=== PATIENT | male | born 1950 | race Caucasian/White ===

== ENCOUNTER 2016-05-30 11:52 | Outpatient (CLI) | payer MEDICARE, OTHER | END 2016-05-30 11:53 | disposition home or self-care (01) | DX: M47.816 Spondylosis without myelopathy or radiculopathy, lumbar region (principal); M51.26 Other intervertebral disc displacement, lumbar region; M43.16 Spondylolisthesis, lumbar region; M51.36 Other intervertebral disc degeneration, lumbar region; M47.817 Spondylosis without myelopathy or radiculopathy, lumbosacral region ==

== ENCOUNTER 2016-06-07 10:46 | Outpatient (CLI) | payer MEDICARE, OTHER | END 2016-06-07 10:47 | disposition home or self-care (01) | DX: Z71.3 Dietary counseling and surveillance (principal); R94.5 Abnormal results of liver function studies; E11.9 Type 2 diabetes mellitus without complications; Z68.39 Body mass index [BMI] 39.0-39.9, adult ==

== ENCOUNTER 2016-07-19 09:45 | Outpatient (CLI) | payer MEDICARE, OTHER | END 2016-07-19 09:46 | disposition home or self-care (01) | DX: Z71.3 Dietary counseling and surveillance (principal); E11.9 Type 2 diabetes mellitus without complications; R94.5 Abnormal results of liver function studies; Z68.39 Body mass index [BMI] 39.0-39.9, adult ==

== ENCOUNTER 2016-10-21 09:09 | Emergency (ER) | payer MEDICARE, OTHER ==
--- NOTE | 2016-10-21 09:20 | ED Physician Documentation ---
PD HPI BACK PAIN - Stated complaint Stated Complaint: BACK PX - Chief complaint Chief Complaint: Back Pain - History obtained from History obtained from: Patient - History of Present Illness Timing - onset: How many days ago (has had pain for a few days. Has been doing some gardening, which is unusual for him. Had had prior back pain for months, found to be related to cyst on spine, which was aspirated in surgical center by spine surgeon and pain improved. This was 4-5 weeks ago. Had some pain again the past couple of weeks and has appt with spine surgeon mid November. Now with increased pain and spasms since gardening these past few days. No fevers, sores , redness, focal neuro symptoms.) Timing - duration: Days (3-4) Timing - details: Gradual onset, Waxing and waning Location: Lower (thoracolumbar area), Right Quality: Pain, Spasm, Aching Associated symptoms: No: Fever, Weakness, Numbness, Incontinent of urine Improves with: Rest Worsened by: Movement, Twisting Contributing factors: Twisting (pulling weeds and using hand garden tools.). No : Trauma Review of Systems Constitutional: denies: Fever, Chills GI: denies: Abdominal Pain, Nausea, Vomiting, Diarrhea : denies: Dysuria, Frequency, Incontinent Skin: denies: Rash, Lesions, Abrasion (s) Neurologic: denies: Focal weakness, Numbness PD PAST MEDICAL HISTORY - Past Medical History Cardiovascular: Hypertension, High cholesterol Respiratory: Sleep apnea, Other Endocrine/Autoimmune: Type 2 diabetes GI: None : Benign prostate hypertrophy HEENT: Chronic vision loss, Chronic hearing loss Psych: Depression, Anxiety Musculoskeletal: Osteoarthritis, Chronic back pain Derm: None - Past Surgical History Past Surgical History: Yes General: Colonoscopy, Other - Present Medications Home Medications: Ambulatory Orders Medication Instructions Recorded Confirmed Aripiprazole [Abilify] 10 mg PO DAILY 11/09/12 10/21/16 Aspirin Chewable [St Fab 81 mg PO DAILY 11/09/12 10/21/16 Aspirin] Celecoxib [Celebrex] 200 mg PO DAILY 11/09/12 10/21/16 Indapamide 2.5 mg PO DAILY 11/09/12 10/21/16 Insulin Glargine,Hum.rec.anlog 40 unit SQ BID 11/09/12 10/21/16 [Lantus] Metformin HCl 1,000 mg PO BID 11/09/12 10/21/16 Pravastatin Sodium [Pravachol] 40 mg PO QPM 11/09/12 10/21/16 Prazosin [Minipress] 5 mg PO BID 11/09/12 10/21/16 Tamsulosin [Flomax] 0.4 mg PO DAILY 11/09/12 10/21/16 Venlafaxine HCl [Effexor Xr] 300 mg PO HS 11/09/12 10/21/16 Insulin Aspart [NovoLOG] 24 unit SUBQ TIDWM 03/20/16 10/21/16 Metoprolol Tartrate 25 mg PO DAILY 03/20/16 10/21/16 Telmisartan [Micardis] 80 mg PO DAILY 03/20/16 10/21/16 Dextroamphetamine Sulfate 20 mg PO DAILY 08/23/16 10/21/16 [Dexedrine] Diazepam 5 mg PO TID PRN #20 tablet 10/21/16 Hydrocodone/Acetaminophen [[place] 1 each PO Q6H PRN #20 tablet 10/21/16 5-325 Tablet] Naproxen [Naprosyn] 500 mg PO BID PRN #20 tablet 10/21/16 - Allergies Allergies/Adverse Reactions: Allergies Allergy/AdvReac Type Severity Reaction Status Date / Time niacin Allergy Rash Verified 10/21/16 09:37 testosterone Allergy low RBC Verified 10/21/16 09:37 - Social History Does the pt smoke?: No Smoking Status: Never smoker Does the pt drink ETOH?: No Does the pt have substance abuse?: No PD ED PE NORMAL - Vitals Vital signs reviewed: Yes - General General: Alert and oriented X 3, Well developed/nourished, Other (appears uncomfortable due to back muscle spasms/stiffness. ) - Neck Neck: Supple, no meningeal sign, No adenopathy - Cardiac Cardiac: RRR, No murmur - Respiratory Respiratory: Clear bilaterally - Abdomen Abdomen: Soft, Non tender - Back Back: No CVA TTP, Other (tender in the right paraspinal muscles at thoracolumbar area. No vertebral tenderness directly to palpation nor percussion. ) - Derm Derm: Normal color, Warm and dry, No rash Results - Vitals Vitals: Vital Signs - 24 hr 10/21/16 10/21/16 09:13 10:33 Temperature 36.2 C L Heart Rate 78 70 Respiratory 16 20 Rate Blood Pressure 148/71 H 153/100 H O2 Saturation 98 Oxygen O2 Source Room air PD MEDICAL DECISION MAKING - ED course Complexity details: considered differential (seems musculoskeletal pain with spasms and no red flags per se. Given IM toradol and diazepam (for spasms) and is improved moderately for now. had similar pain with cyst on spine and has f/u with spine surgeon in a month but with PMD in a week. Dr. Troncoso could potentially order MRI to have results available for spine surgeon appt. Patient has also been doing gardening for the past 4 days, unusual activity for him, so may have just regular muscular pain as well. ), d/w patient Departure - Departure Disposition: 01 Home, Self Care Clinical Impression: Thoracolumbar back pain Condition: Stable Record reviewed to determine appropriate education?: Yes Instructions: ED Low Back Pain Injury Follow-Up: Parish Troncoso MD [Primary Care Provider] - Prescriptions: Diazepam 5 mg PO TID PRN #20 tablet PRN Reason: Spasms Naproxen [Naprosyn] 500 mg PO BID PRN #20 tablet PRN Reason: Pain Hydrocodone/Acetaminophen [[place] 5-325 Tablet] 1 each PO Q6H PRN #20 tablet PRN Reason: Pain Comments: Continue usual medications. Naproxen twice daily for 7-10 days. Add Diazepam for spasms and hydrocodone for pain as needed. Try heat or ice to area to see if it helps. Follow up PMD in about a week if not better. Discharge Date/Time: 10/21/16 10:33
[2016-10-21] MEDS ORDERED: KETOROLAC 60 MG/2 ML VIAL IM STA (09:42)
[2016-10-21] MEDS ORDERED: diazePAM INJ 5 MG/ML SYRINGE IM STA (09:43)
[2016-10-21] MEDS ORDERED: diazePAM INJ 5 MG/ML SYRINGE ONE (09:50)
[2016-10-21] MEDS ORDERED: KETOROLAC 60 MG/2 ML VIAL ONE (09:50)
[2016-10-21 10:34] VITALS: BP 153/100
== END 2016-10-21 10:33 | disposition home or self-care (01) ==
LOC: ED 09:09
DX: M54.5 Low back pain (principal); M54.6 Pain in thoracic spine; M62.830 Muscle spasm of back; M19.90 Unspecified osteoarthritis, unspecified site; I10 Essential (primary) hypertension; E11.9 Type 2 diabetes mellitus without complications; Z79.4 Long term (current) use of insulin; Z79.82 Long term (current) use of aspirin
CPT/HCPCS: 96372; 99283; 99284

== ENCOUNTER 2016-10-23 07:50 | Outpatient (CLI) | payer MEDICARE, OTHER ==
[2016-10-23 13:07] LABS: HEMOGLOBIN A1C 0.73 g/dL
[2016-10-23 13:17] LABS: ALBUMIN/GLOBULIN RATIO 1.8 (1.0-2.2); BILIRUBIN,TOTAL 0.6 mg/dL (0.2-1.0); CALCIUM 9.2 mg/dL (8.5-10.3); CREATININE 1.1 mg/dL (0.6-1.2); POTASSIUM 4.1 mmol/L (3.5-5.0); TOTAL PROTEIN 7.2 g/dL (6.7-8.2)
== END 2016-10-23 07:51 | disposition home or self-care (01) ==
LOC: LAB.WCP 07:50
PROVIDERS: ATTEND Family Medicine
DX: E11.9 Type 2 diabetes mellitus without complications (principal); R94.5 Abnormal results of liver function studies
CPT/HCPCS: 36415; 80053; 83036

== ENCOUNTER 2017-04-22 07:52 | Outpatient (CLI) | payer MEDICARE, OTHER ==
[2017-04-22 14:01] LABS: BASOPHILS % (AUTO) 1.1 %; EOSINOPHILS % (AUTO) 3.1 %; HCT - HEMATOCRIT 45.9 % (42.0-52.0); HGB - HEMOGLOBIN 15.6 g/dL (14.0-18.0); LYMPHOCYTES % (AUTO) 26.8 %; MEAN CORPUSCULAR HEMOGLOBIN 29.1 pg (27.0-31.0); MEAN CORPUSCULAR VOLUME 85.5 fL (80.0-94.0); MEAN PLATELET VOLUME 8.5 fL (7.4-11.4); MONOCYTES % (AUTO) 5.6 %; NEUTROPHILS % (AUTO) 63.4 %; RED BLOOD COUNT 5.37 10^6/uL (4.70-6.10); RED CELL DISTRIBUTION WIDTH 14.4 % (12.0-15.0); UNCORRECTED WHITE BLOOD COUNT 8.6 x10^3/uL; WHITE BLOOD COUNT 8.6 x10^3/uL (4.8-10.8)
[2017-04-22 14:52] LABS: TRIGLYCERIDES 216 mg/dL; VLDL CHOLESTEROL 43 mg/dL
[2017-04-22 14:53] LABS: ALBUMIN/GLOBULIN RATIO 1.6 (1.0-2.2); BILIRUBIN,TOTAL 0.7 mg/dL (0.2-1.0); BUN - BLOOD UREA NITROGEN 16 mg/dL (6-20); CALCIUM 9.1 mg/dL (8.5-10.3); CARBON DIOXIDE - CO2 22 mmol/L (21-32); CHLORIDE 104 mmol/L (101-111); CHOL/HDL RATIO 4.3 (<5.0); CHOLESTEROL 171 mg/dL; CREATININE 1.1 mg/dL (0.6-1.2); GFR - MDRD 67 (>89); GLUCOSE 184 mg/dL (70-100); HDL CHOLESTEROL 40 mg/dL; LDL/HDL RATIO 2.2 (<3.6); SODIUM 136 mmol/L (135-145); TOTAL PROTEIN 7.5 g/dL (6.7-8.2)
[2017-04-22 16:17] LABS: BAND NEUTROPHILS % (MANUAL) 6 %; EOSINOPHILS % (MANUAL) 6 %; LYMPHOCYTES % (MANUAL) 20 %; NEUTROPHILS % (MANUAL) 54 %; TOTAL CELLS COUNTED 100
[2017-04-22 16:44] LABS: NP AUTO DIFFERENTIAL? YES; NP MAN DIFFERENTIAL? NO; PLATELET ESTIMATE, MANUAL NORMAL (130-450,000) (NORMAL); PLATELET MORPHOLOGY NORMAL APP (NORMAL); WBC MORPHOLOGY (MULTIPLE) 1+ REACTIVE LYMPHS (NORMAL)
== END 2017-04-22 07:53 | disposition home or self-care (01) ==
LOC: LAB.WCP 07:52
PROVIDERS: ATTEND Family Medicine
DX: I49.8 Other specified cardiac arrhythmias (principal); E78.5 Hyperlipidemia, unspecified; Z12.5 Encounter for screening for malignant neoplasm of prostate; R06.00 Dyspnea, unspecified
CPT/HCPCS: 36415; 80053; 80061; 83880; 84443; 85025; G0103; 84153

== ENCOUNTER 2017-06-18 15:15 | Emergency (ER) | payer MEDICARE, OTHER ==
--- NOTE | 2017-06-18 15:52 | ED Physician Documentation ---
History of Present Illness - Stated complaint Stated Complaint: SYNCOPE - Chief complaint Chief Complaint: General - History obtained from History obtained from: Patient, Family () - History of Present Illness Timing: Other (66-year-old gentleman with history of obstructive sleep apnea on BiPAP at night, type 1 diabetes, obesity and hypertension but no known history of heart disease presents with exertional dyspnea that has been going on for about a month and a half. He noticed it around [place] time when golfing and he has had exertional dyspnea with walking a moderate distance ever since. He does not have dyspnea at rest nor does he have orthopnea. There has been no pedal edema or chest pain with this. He had a presyncopal episode with dyspnea today. He has seen a network systems engineer, Dr. Mcmahon who stopped his metoprolol based on the fact that in the office he had a EKG showing "missing P-wave." And is scheduled for workup including medical stress test, echo, and chest x-ray on the of this month.) Review of Systems Ten Systems: 10 systems reviewed and negative Constitutional: denies: Fever, Chills, Fatigue, Weight Loss Nose: denies: Rhinorrhea / runny nose, Congestion Cardiac: denies: Chest pain / pressure, Palpitations, Pedal edema, Calf pain Respiratory: reports: Dyspnea. denies: Cough GI: denies: Abdominal Pain, Bloody / black stool PD PAST MEDICAL HISTORY - Past Medical History Past Medical History: Yes Cardiovascular: Hypertension, High cholesterol Respiratory: Sleep apnea, Other Endocrine/Autoimmune: Type 2 diabetes GI: None : Benign prostate hypertrophy HEENT: Chronic vision loss, Chronic hearing loss Psych: Depression, Anxiety Musculoskeletal: Osteoarthritis, Chronic back pain Derm: None - Past Surgical History Past Surgical History: Yes General: Colonoscopy, Other - Present Medications Home Medications: Ambulatory Orders Medication Instructions Recorded Confirmed Aripiprazole [Abilify] 10 mg PO DAILY 11/09/12 10/21/16 Aspirin Chewable [St Fab 81 mg PO DAILY 11/09/12 10/21/16 Aspirin] Celecoxib [Celebrex] 200 mg PO DAILY 11/09/12 10/21/16 Indapamide 2.5 mg PO DAILY 11/09/12 10/21/16 Insulin Glargine,Hum.rec.anlog 80 unit SQ BID 11/09/12 10/21/16 [Lantus] Metformin HCl 1,000 mg PO BID 11/09/12 10/21/16 Pravastatin Sodium [Pravachol] 40 mg PO QPM 11/09/12 10/21/16 Prazosin [Minipress] mg PO BID 11/09/12 10/21/16 Tamsulosin [Flomax] 0.4 mg PO DAILY 11/09/12 10/21/16 Venlafaxine HCl [Effexor Xr] 300 mg PO HS 11/09/12 10/21/16 Insulin Aspart [NovoLOG] 120 unit SUBQ TIDWM 03/20/16 10/21/16 Telmisartan [Micardis] 80 mg PO DAILY 03/20/16 10/21/16 Dextroamphetamine Sulfate 20 mg PO DAILY 08/23/16 10/21/16 [Dexedrine] diazePAM [Diazepam] 5 mg PO TID PRN #20 tablet 10/21/16 - Allergies Allergies/Adverse Reactions: Allergies Allergy/AdvReac Type Severity Reaction Status Date / Time niacin Allergy Rash Verified 10/21/16 09:37 testosterone Allergy low RBC Verified 10/21/16 09:37 - Social History Does the pt smoke?: No Smoking Status: Never smoker Does the pt drink ETOH?: No Does the pt have substance abuse?: No PD ED PE NORMAL - Vitals Vital signs reviewed: Yes - General General: Alert and oriented X 3, No acute distress - HEENT HEENT: PERRL, EOMI - Neck Neck: Supple, no meningeal sign, No bony TTP - Cardiac Cardiac: RRR, No murmur - Respiratory Respiratory: No respiratory distress, Clear bilaterally - Abdomen Abdomen: Normal bowel sounds, Soft, Non tender - Back Back: No CVA TTP, No spinal TTP - Derm Derm: Normal color, Warm and dry, No rash - Extremities Extremities: No edema, No calf tenderness / cord - Neuro Neuro: Alert and oriented X 3, Normal speech - Psych Psych: Normal mood, Normal affect Results - Vitals Vitals: Vital Signs - 24 hr 06/18/17 06/18/17 06/18/17 15:24 15:30 16:20 Temperature 36.2 C L Heart Rate 99 102 H 92 Respiratory 22 20 20 Rate Blood Pressure 145/67 H 135/76 H 145/65 H O2 Saturation 95 94 Oxygen O2 Source Room air - EKG (time done) 1523 Rate: Rate (enter#) (99) Rhythm: NSR [place]: Normal Intervals: Prolonged ND QRS: Normal Ischemia: Normal ST segments Computer interpretation: Agree with computer - Labs Labs: Laboratory Tests 06/18/17 06/18/17 06/18/17 16:03 16:03 16:03 WBC 9.2 RBC 5.11 Hgb 14.8 Hct 43.0 MCV 84.2 MCH 29.0 MCHC 34.4 RDW 14.0 Plt Count 177 MPV 7.8 Neut # 6.2 Lymph # 2.1 [place] # 0.6 Eos # 0.2 Baso # 0.1 Absolute Nucleated RBC 0.00 Nucleated RBC % 0.0 Sodium 134 L Potassium 4.2 Chloride 96 L Carbon Dioxide 22 Anion Gap 16.0 H BUN 27 H Creatinine 1.8 H Estimated GFR (MDRD) 38 L Glucose 71 Calcium 9.8 Total Bilirubin 0.5 AST 43 H ALT 49 Alkaline Phosphatase 47 Troponin I < 0.04 B-Natriuretic Peptide Total Protein 7.6 Albumin 4.7 Globulin 2.9 Albumin/Globulin Ratio 1.6 Lipase 18 L 06/18/17 16:03 WBC RBC Hgb Hct MCV MCH MCHC RDW Plt Count MPV Neut # Lymph # [place] # Eos # Baso # Absolute Nucleated RBC Nucleated RBC % Sodium Potassium Chloride Carbon Dioxide Anion Gap BUN Creatinine Estimated GFR (MDRD) Glucose Calcium Total Bilirubin AST ALT Alkaline Phosphatase Troponin I B-Natriuretic Peptide 5 Total Protein Albumin Globulin Albumin/Globulin Ratio Lipase PD MEDICAL DECISION MAKING - ED course ED course: 66-year-old gentleman with now pretty subacute dyspnea on exertion, but no evidence of fluid overload. His EKG is nonischemic and his x-ray and BNP are without evidence of heart failure. I was unable to get an echocardiogram today but he has outpatient follow-up scheduled. His lab work was otherwise notable for prerenal azotemia which is new, he is not on a diuretic he was administered a liter of IV fluid for this. He was ambulated in the hallway with pulse oximetry showing no significant hypoxemia. Departure - Departure Disposition: 01 Home, Self Care Clinical Impression: DE ANDA (dyspnea on exertion) Condition: Good Record reviewed to determine appropriate education?: Yes Instructions: ED Dyspnea Shortness of Breath Comments: Keep the appointment for further workup including echocardiogram and stress test as scheduled. Your chest x-ray, 2 views here was normal today so that probably does not need to be repeated. Let your network systems engineer know that your BNP was only 5 and her troponin was undetectable. These are cardiac markers that are reassuring. Your BUN was elevated and your creatinine was as well, 1.8 today. This needs follow-up as well. Return if symptoms worsen or change.
[2017-06-18 16:09] LABS: BASOPHILS # (AUTO) 0.1 10^3/uL (0.0-0.1); BASOPHILS % (AUTO) 1.1 %; EOSINOPHILS # (AUTO) 0.2 10^3/uL (0.0-0.7); EOSINOPHILS % (AUTO) 1.8 %; HGB - HEMOGLOBIN 14.8 g/dL (14.0-18.0); LYMPHOCYTES # (AUTO) 2.1 10^3/uL (1.5-3.5); LYMPHOCYTES % (AUTO) 23.2 %; MEAN CORPUSCULAR HGB CONC 34.4 g/dL (32.0-36.0); MEAN CORPUSCULAR VOLUME 84.2 fL (80.0-94.0); MEAN PLATELET VOLUME 7.8 fL (7.4-11.4); MONOCYTES # (AUTO) 0.6 10^3/uL (0.0-1.0); MONOCYTES % (AUTO) 6.7 %; NEUTROPHILS # (AUTO) 6.2 10^3/uL (1.5-6.6); NEUTROPHILS % (AUTO) 67.2 %; PLT - PLATELET COUNT 177 10^3/uL (130-450); RED BLOOD COUNT 5.11 10^6/uL (4.70-6.10); WHITE BLOOD COUNT 9.2 x10^3/uL (4.8-10.8)
[2017-06-18 16:22] LABS: ALBUMIN 4.7 g/dL (3.2-5.5); ALBUMIN/GLOBULIN RATIO 1.6 (1.0-2.2); BILIRUBIN,TOTAL 0.5 mg/dL (0.2-1.0); CALCIUM 9.8 mg/dL (8.5-10.3); CREATININE 1.8 mg/dL (0.6-1.2); TOTAL PROTEIN 7.6 g/dL (6.7-8.2)
--- NOTE | 2017-06-18 16:36 | XRAY Preliminary Report ---
Exam: XR CHEST 2 VIEW X-RAY IMPRESSION: Normal 2-view chest radiography. [facility] SITE ID: [id number]
[2017-06-18] MEDS ORDERED: SODIUM CHLORIDE 0.9% 1,000 ML IV ONE (16:43)
--- NOTE | 2017-06-18 16:43 | XRAY Report ---
EXAM: CHEST RADIOGRAPHY EXAM DATE: 06/18/2017 04:17 PM. CLINICAL HISTORY: Dyspnea on exertion. COMPARISON: None. TECHNIQUE: 2 views. FINDINGS: Lungs/Pleura: No focal opacities evident. No pleural effusion. No pneumothorax. Normal volumes. Mediastinum: Heart and mediastinal contours are unremarkable. Other: None. IMPRESSION: Normal 2-view chest radiography. [facility] Referring Provider Line: [phone] SITE ID: [id number]
[2017-06-18 18:56] VITALS: BP 170/78
== END 2017-06-18 18:55 | disposition home or self-care (01) ==
LOC: ED 15:15
DX: R06.00 Dyspnea, unspecified (principal); I45.81 Long QT syndrome; E11.9 Type 2 diabetes mellitus without complications; I10 Essential (primary) hypertension; E66.9 Obesity, unspecified; Z79.4 Long term (current) use of insulin; Z79.82 Long term (current) use of aspirin
CPT/HCPCS: 36415; 71046; 80053; 83690; 83880; 84484; 85025; 93005; 99283; 99285

== ENCOUNTER 2017-06-24 07:30 | Outpatient (CLI) | payer MEDICARE, OTHER ==
[2017-06-24 12:47] LABS: HB2 TOTAL 16.3 g/dL; HEMOGLOBIN A1C 0.88 g/dL; HEMOGLOBIN A1C % 7.1 % (4.6-6.2)
[2017-06-24 14:08] LABS: ALBUMIN 4.5 g/dL (3.2-5.5); ALBUMIN/GLOBULIN RATIO 1.7 (1.0-2.2); BILIRUBIN,TOTAL 0.7 mg/dL (0.2-1.0); CALCIUM 9.1 mg/dL (8.5-10.3); CREATININE 1.2 mg/dL (0.6-1.2); TOTAL PROTEIN 7.2 g/dL (6.7-8.2)
== END 2017-06-24 07:31 | disposition home or self-care (01) ==
LOC: LAB.WCP 07:30
PROVIDERS: ATTEND Family Medicine
DX: E11.9 Type 2 diabetes mellitus without complications (principal); I10 Essential (primary) hypertension
CPT/HCPCS: 36415; 80053; 83036

== ENCOUNTER 2017-08-08 12:59 | Outpatient (CLI) | payer MEDICARE, OTHER ==
[~2017-08-08 12:59] MED LIST: ALBUTEROL NEB 2.5 MG/3 ML INH ONE
== END 2017-08-08 13:00 | disposition home or self-care (01) ==
LOC: RT 12:59
PROVIDERS: ATTEND Family Medicine
DX: R06.00 Dyspnea, unspecified (principal)
CPT/HCPCS: 94010; 94729

== ENCOUNTER 2017-10-10 08:00 | Outpatient (CLI) | payer MEDICARE, OTHER ==
[2017-10-10 12:15] LABS: BASOPHILS # (AUTO) 0.1 10^3/uL (0.0-0.1); BASOPHILS % (AUTO) 1.2 %; EOSINOPHILS # (AUTO) 0.3 10^3/uL (0.0-0.7); EOSINOPHILS % (AUTO) 3.3 %; HGB - HEMOGLOBIN 15.5 g/dL (14.0-18.0); LYMPHOCYTES # (AUTO) 2.4 10^3/uL (1.5-3.5); LYMPHOCYTES % (AUTO) 29.4 %; MEAN CORPUSCULAR HEMOGLOBIN 28.5 pg (27.0-31.0); MEAN CORPUSCULAR HGB CONC 33.6 g/dL (32.0-36.0); MEAN CORPUSCULAR VOLUME 84.7 fL (80.0-94.0); MEAN PLATELET VOLUME 8.5 fL (7.4-11.4); MONOCYTES # (AUTO) 0.5 10^3/uL (0.0-1.0); MONOCYTES % (AUTO) 6.8 %; NEUTROPHILS # (AUTO) 4.8 10^3/uL (1.5-6.6); NEUTROPHILS % (AUTO) 59.3 %; PLT - PLATELET COUNT 189 10^3/uL (130-450); RED BLOOD COUNT 5.44 10^6/uL (4.70-6.10); RED CELL DISTRIBUTION WIDTH 14.5 % (12.0-15.0)
[2017-10-10 12:28] LABS: ALBUMIN 4.5 g/dL (3.2-5.5); ALBUMIN/GLOBULIN RATIO 1.5 (1.0-2.2); BILIRUBIN,TOTAL 0.8 mg/dL (0.2-1.0); CALCIUM 9.2 mg/dL (8.5-10.3); CREATININE 1.2 mg/dL (0.6-1.2); TOTAL PROTEIN 7.6 g/dL (6.7-8.2)
[2017-10-10 12:51] LABS: HB2 TOTAL 17.7 g/dL; HEMOGLOBIN A1C 0.85 g/dL; HEMOGLOBIN A1C % 6.5 % (4.6-6.2)
== END 2017-10-10 08:01 | disposition home or self-care (01) ==
LOC: LAB.WCP 08:00
PROVIDERS: ATTEND Family Medicine
DX: E78.5 Hyperlipidemia, unspecified (principal); E11.9 Type 2 diabetes mellitus without complications; G47.33 Obstructive sleep apnea (adult) (pediatric); I10 Essential (primary) hypertension; R06.09 Other forms of dyspnea
CPT/HCPCS: 36415; 80053; 83036; 85025

== ENCOUNTER 2018-08-05 08:00 | Outpatient (CLI) | payer MEDICARE, OTHER ==
[2018-08-05 19:50] LABS: ALBUMIN/GLOBULIN RATIO 1.4 (1.0-2.2); BILIRUBIN,TOTAL 0.7 mg/dL (0.2-1.0); CALCIUM 8.8 mg/dL (8.5-10.3); CREATININE 0.9 mg/dL (0.6-1.2); TOTAL PROTEIN 6.8 g/dL (6.7-8.2)
[2018-08-05 19:53] LABS: HEMOGLOBIN A1C 0.64 g/dL; HEMOGLOBIN A1C % 6.1 % (4.6-6.2)
== END 2018-08-05 23:59 | disposition home or self-care (01) ==
LOC: LAB.WCP 08:00
PROVIDERS: ATTEND Family Medicine
DX: G47.419 Narcolepsy without cataplexy (principal); E11.9 Type 2 diabetes mellitus without complications; I10 Essential (primary) hypertension; G47.30 Sleep apnea, unspecified
CPT/HCPCS: 36415; 80053; 83036

== ENCOUNTER 2018-09-17 14:02 | Outpatient (CLI) | payer MEDICARE, OTHER ==
[2018-09-17 14:20] LABS: CALCIUM 9.2 mg/dL (8.5-10.3); CREATININE 1.1 mg/dL (0.6-1.2)
[2018-09-17] MEDS ORDERED: GADOBUTROL 10 MMOL/10 ML VIAL ONE (15:29)
[2018-09-17] MEDS ORDERED: GADOBUTROL 10 MMOL/10 ML VIAL IVP ONE (16:24)
--- NOTE | 2018-09-17 17:48 | MRI Report ---
Reason: MOVEMENT DISORDER,MEMORY IMPAIRMENT Procedure Date: 09/17/2018 Accession Number: [id number] / [id number] Procedure: MRI - Brain W/WO CPT Code: FULL RESULT: EXAM: MRI BRAIN WITHOUT AND WITH CONTRAST EXAM DATE: 09/17/2018 04:57 PM. CLINICAL HISTORY: MOVEMENT DISORDER,MEMORY IMPAIRMENT. COMPARISON: MRI brain 12/18/2005. TECHNIQUE: Multiplanar, multisequence T1-weighted and fluid-sensitive MR sequences of the brain were performed. Sequences optimized for routine evaluation. Other: None. IV Contrast: 10 cc Gadavist. FINDINGS: No cerebellar tonsillar ectopia is present. No significant volume loss is seen involving the upper mid brain on the sagittal images. No abnormal restricted diffusion signal is seen. No abnormal magnetic susceptibility is identified in the brain parenchyma. There is mild cerebellar atrophy bilaterally which is new. There has been an increase in the degree of prominence of the ventricles and sulci in the supratentorial compartment which is slightly greater than expected for the patient's age. This is new There is no extra-axial fluid collection present. Punctate FLAIR hyperintensities are seen in the cerebral hemisphere white matter bilaterally. These are mild in number. They have increased in number since the comparison study. No abnormal signal is seen in either basal ganglia. There is an expected flow void in the major intracranial vessels at the skull base. No mass is present in either orbit There is a 14 mm focus of T2 hyperintense signal involving mastoid air cells on the left. Extension into the middle ear cavity is suspected. This does not demonstrate restricted diffusion signal. On the more delayed images there might be some degree of contrast enhancement. T2 hyperintense signal extends near the eustachian tube on the left. This is new. No enhancing mass is identified in the brain parenchyma.Expected enhancement is present in the major dural venous sinuses. No enhancing mass is identified in either Meckel's cave. The cavernous sinuses enhance in symmetric fashion. No mass is present in either orbit. IMPRESSION: 1. Interval development of mild cerebral and cerebellar atrophy. 2. No enhancing mass is present in the brain parenchyma. 3. No abnormal signal is seen in either basal ganglia. 4. Slight progression of mild small vessel ischemic change in the cerebral hemisphere white matter bilaterally. 5. T2 hyperintense signal is seen involving mastoid air cells and middle ear cavity on the left with possible extension into the eustachian tube region. This could reflect otomastoiditis. An element of cholesteatoma is in the differential given possible enhancement on the more delayed postcontrast images. Dedicated temporal bone CT could better assess this finding. [facility]
== END 2018-09-17 14:03 | disposition home or self-care (01) ==
LOC: LAB 14:02 → DI 14:03
PROVIDERS: ATTEND Family Medicine
DX: G31.9 Degenerative disease of nervous system, unspecified (principal); I67.82 Cerebral ischemia; R41.3 Other amnesia; G25.9 Extrapyramidal and movement disorder, unspecified
CPT/HCPCS: 36415; 70553; 80048; A9585

== ENCOUNTER 2018-09-25 11:49 | Outpatient (CLI) | payer MEDICARE, OTHER | END 2018-09-25 11:50 | disposition home or self-care (01) | LOC: LAB.WCP 11:49 | PROVIDERS: ATTEND Family Medicine | DX: Z12.5 Encounter for screening for malignant neoplasm of prostate (principal) | CPT/HCPCS: 36415; G0103; 84153 ==

== ENCOUNTER 2018-11-13 10:43 | Outpatient (CLI) | payer MEDICARE, OTHER ==
[2018-11-13 12:33] LABS: BASOPHILS # (AUTO) 0.1 10^3/uL (0.0-0.1); BASOPHILS % (AUTO) 1.2 %; EOSINOPHILS # (AUTO) 0.2 10^3/uL (0.0-0.7); EOSINOPHILS % (AUTO) 2.8 %; HGB - HEMOGLOBIN 14.7 g/dL (14.0-18.0); LYMPHOCYTES # (AUTO) 2.2 10^3/uL (1.5-3.5); MEAN CORPUSCULAR HEMOGLOBIN 28.6 pg (27.0-31.0); MEAN CORPUSCULAR HGB CONC 32.5 g/dL (32.0-36.0); MEAN CORPUSCULAR VOLUME 87.9 fL (80.0-94.0); MEAN PLATELET VOLUME 10.3 fL (7.4-11.4); MONOCYTES # (AUTO) 0.6 10^3/uL (0.0-1.0); MONOCYTES % (AUTO) 7.4 %; NEUTROPHILS # (AUTO) 4.4 10^3/uL (1.5-6.6); NEUTROPHILS % (AUTO) 58.7 %; PLT - PLATELET COUNT 214 10^3/uL (130-450); RED BLOOD COUNT 5.14 10^6/uL (4.70-6.10); RED CELL DISTRIBUTION WIDTH 13.7 % (12.0-15.0); WHITE BLOOD COUNT 7.5 x10^3/uL (4.8-10.8)
[2018-11-13 13:08] LABS: CALCIUM 9.8 mg/dL (8.5-10.3)
== END 2018-11-13 23:59 | disposition home or self-care (01) ==
LOC: LAB.WCP 10:43
PROVIDERS: ATTEND Physician Assistant Medical
DX: I10 Essential (primary) hypertension (principal)
CPT/HCPCS: 36415; 80048; 84443; 85025

== ENCOUNTER 2019-01-20 06:58 | Outpatient (CLI) | payer MEDICARE, OTHER ==
--- NOTE | 2019-01-20 12:28 | Ultrasound Report ---
Reason: ABNORMAL FINDINGS ON DX IMAGING OF LIVER AND BILIA Procedure Date: 01/20/2019 Accession Number: [id number] / [id number] Procedure: US - Abdomen Limited CPT Code: FULL RESULT: EXAM: ABDOMEN ULTRASOUND LIMITED, RUQ EXAM DATE: 01/20/2019 07:31 AM. CLINICAL HISTORY: 01/05/2019 CT IVP at [facility] showed left hepatic lobe abnormality, possible hemangioma or cyst. COMPARISON: Outside images of 01/05/2019 are unavailable for comparison.. TECHNIQUE: Real-time scanning was performed with static images obtained. FINDINGS: Liver: Increased both in size and echotexture. 21.2 cm. Main portal vein flow: Hepatopetal. Small cluster of simple cysts in the left lobe of the liver 1.4 x 0.9 x 1.6 cm. Gallbladder: Not evaluated Biliary System: CBD measures 3.5 mm. No intrahepatic or extrahepatic ductal dilatation. Free fluid: None. IMPRESSION: Hepatomegaly with fatty infiltration of the liver. Cluster of simple cysts anterior medial left lobe of the liver 1.4 x 0.9 x 1.6 cm. [facility]
== END 2019-01-20 06:59 | disposition home or self-care (01) ==
LOC: DI 06:58
PROVIDERS: ATTEND Family Medicine
DX: K76.0 Fatty (change of) liver, not elsewhere classified (principal); K76.89 Other specified diseases of liver
CPT/HCPCS: 76705

== ENCOUNTER 2019-09-23 07:58 | Outpatient (CLI) | payer MEDICARE, OTHER ==
[2019-09-23 13:24] LABS: BASOPHILS # (AUTO) 0.1 10^3/uL (0.0-0.1); EOSINOPHILS # (AUTO) 0.4 10^3/uL (0.0-0.7); EOSINOPHILS % (AUTO) 5.1 %; HGB - HEMOGLOBIN 13.7 g/dL (14.0-18.0); LYMPHOCYTES # (AUTO) 2.4 10^3/uL (1.5-3.5); LYMPHOCYTES % (AUTO) 33.6 %; MEAN CORPUSCULAR HEMOGLOBIN 26.6 pg (27.0-31.0); MEAN CORPUSCULAR HGB CONC 30.4 g/dL (32.0-36.0); MEAN CORPUSCULAR VOLUME 87.6 fL (80.0-94.0); MEAN PLATELET VOLUME 9.9 fL (7.4-11.4); MONOCYTES # (AUTO) 0.5 10^3/uL (0.0-1.0); MONOCYTES % (AUTO) 6.8 %; NEUTROPHILS # (AUTO) 3.8 10^3/uL (1.5-6.6); NEUTROPHILS % (AUTO) 52.8 %; PLT - PLATELET COUNT 196 10^3/uL (130-450); RED BLOOD COUNT 5.15 10^6/uL (4.70-6.10); WHITE BLOOD COUNT 7.2 x10^3/uL (4.8-10.8)
[2019-09-23 13:26] LABS: HB2 TOTAL 14.4 g/dL; HEMOGLOBIN A1C 0.76 g/dL
[2019-09-23 13:30] LABS: ALBUMIN/GLOBULIN RATIO 1.3 (1.0-2.2); ALKALINE PHOSPHATASE 59 IU/L (42-121); ALT ALANINE AMINOTRANSFERASE 37 IU/L (10-60); AST ASPARTATE AMINOTRANSFERASE 23 IU/L (10-42); BILIRUBIN,TOTAL 0.4 mg/dL (0.2-1.0); BUN - BLOOD UREA NITROGEN 18 mg/dL (6-20); CALCIUM 9.1 mg/dL (8.5-10.3); CARBON DIOXIDE - CO2 25 mmol/L (21-32); CHLORIDE 104 mmol/L (101-111); CHOL/HDL RATIO 4.1 (<5.0); CHOLESTEROL 153 mg/dL; CREATININE 1.1 mg/dL (0.6-1.2); GLUCOSE 93 mg/dL (70-100); HDL CHOLESTEROL 37 mg/dL; LDL CHOLESTEROL,CALCULATED 75 mg/dL; SODIUM 137 mmol/L (135-145); TOTAL PROTEIN 7.1 g/dL (6.7-8.2); VLDL CHOLESTEROL 41 mg/dL
[2019-09-23 18:53] LABS: CREATININE,URINE 241.9 mg/dL; MICROALBUM/CREATININE RATIO,UR 7.4 ug/mg (<30.0); MICROALBUMIN,URINE 1.8 mg/dL (0-300.0)
== END 2019-09-23 23:59 | disposition home or self-care (01) ==
LOC: LAB.WCP 07:58
PROVIDERS: ATTEND Family Medicine
DX: E78.5 Hyperlipidemia, unspecified (principal); E11.9 Type 2 diabetes mellitus without complications; I10 Essential (primary) hypertension
CPT/HCPCS: 36415; 80053; 80061; 82043; 82570; 83036; 83721; 84443; 85025

== ENCOUNTER 2019-10-05 11:44 | Emergency (ER) | payer MEDICARE, OTHER ==
[2019-10-05 11:51] VITALS: BP 156/76
--- NOTE | 2019-10-05 12:32 | ED Physician Documentation ---
PD HPI SKIN - Stated complaint Stated Complaint: RASH/SHINGLES - Chief complaint Chief Complaint: Wound - History obtained from History obtained from: Patient - History of Present Illness Timing - onset: How many days ago (5) Timing - duration: Days (5) Timing - details: Gradual onset, Still present Location: Abdomen, Back Quality / character: Itchy, Painful, Burning Associated symptoms: Abd pain. No: Fever, Myalgias, Joint pain, Headache, Facial swelling, Dyspnea, N/V/D Similar symptoms before: Has not had sx before Recently seen: Not recently seen - Additional information Additional information: 69-year-old male with a history of hypertension diabetes and obstructive sleep apnea has developed a rash on the side of his abdomen and on his back that is extremely painful and comes and shocks. He has had the chickenpox as a child and he has had the shingles vaccine. He sent to the emergency department by his doctor for evaluation of shingles. Review of Systems Constitutional: denies: Fever, Chills Eyes: denies: Decreased vision Ears: denies: Ear pain Nose: denies: Congestion Throat: denies: Sore throat Respiratory: denies: Cough GI: reports: Abdominal Pain, Constipation. denies: Vomiting Skin: reports: Rash Musculoskeletal: reports: Back pain. denies: Neck pain, Extremity pain Neurologic: denies: Generalized weakness, Focal weakness, Numbness PD PAST MEDICAL HISTORY - Past Medical History Past Medical History: Yes Cardiovascular: Hypertension, High cholesterol Respiratory: Sleep apnea, Other Endocrine/Autoimmune: Type 2 diabetes GI: None : Benign prostate hypertrophy HEENT: Chronic vision loss, Chronic hearing loss Psych: Depression, Anxiety Musculoskeletal: Osteoarthritis, Chronic back pain Derm: None - Past Surgical History Past Surgical History: Yes General: Colonoscopy, Other - Present Medications Home Medications: Ambulatory Orders Medication Instructions Recorded Confirmed Aripiprazole [Abilify] 10 mg PO DAILY 11/09/12 10/21/16 Aspirin Chewable [St Fab 81 mg PO DAILY 11/09/12 10/21/16 Aspirin] Celecoxib [Celebrex] 200 mg PO DAILY 11/09/12 10/21/16 Indapamide 2.5 mg PO DAILY 11/09/12 10/21/16 Insulin Glargine,Hum.rec.anlog 80 unit SQ BID 11/09/12 10/21/16 [Lantus] Metformin HCl 1,000 mg PO BID 11/09/12 10/21/16 Pravastatin Sodium [Pravachol] 40 mg PO QPM 11/09/12 10/21/16 Prazosin [Minipress] mg PO BID 11/09/12 10/21/16 Tamsulosin [Flomax] 0.4 mg PO DAILY 11/09/12 10/21/16 Venlafaxine HCl [Effexor Xr] 300 mg PO HS 11/09/12 10/21/16 Insulin Aspart [NovoLOG] 120 unit SUBQ TIDWM 03/20/16 10/21/16 Telmisartan [Micardis] 80 mg PO DAILY 03/20/16 10/21/16 Dextroamphetamine Sulfate 20 mg PO DAILY 08/23/16 10/21/16 [Dexedrine] diazePAM [Diazepam] 5 mg PO TID PRN #20 tablet 10/21/16 Hydrocodone/Acetaminophen 1 - 2 each PO Q6H PRN #14 tablet 10/05/19 [Hydrocodon-Acetaminophen 5-325] Valacyclovir HCl [Valacyclovir] 1,000 mg PO TID #21 tablet 10/05/19 - Allergies Allergies/Adverse Reactions: Allergies Allergy/AdvReac Type Severity Reaction Status Date / Time niacin Allergy Rash Verified 10/21/16 09:37 testosterone Allergy low RBC Verified 10/21/16 09:37 - Social History Does the pt smoke?: No Smoking Status: Never smoker Does the pt drink ETOH?: No Does the pt have substance abuse?: No - Immunizations Immunizations are current?: Yes - POLST Patient has POLST: No PD ED PE NORMAL - Vitals Vital signs reviewed: Yes (Hypertensive) - General General: Alert and oriented X 3, No acute distress, Well developed/nourished - HEENT HEENT: Atraumatic, PERRL, EOMI - Respiratory Respiratory: No respiratory distress - Abdomen Abdomen: Soft, Other (There is a group of vesicles in the left mid abdomen and over the back corresponding to the same dermatome.) - Back Back: No CVA TTP, No spinal TTP - Derm Derm: Normal color, Warm and dry, No rash - Extremities Extremities: No deformity, No edema - Neuro Neuro: Alert and oriented X 3, 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, No motor deficit, No sensory deficit, Normal speech Eye Opening: Spontaneous Motor: Obeys Commands Verbal: Oriented GCS Score: 15 - Psych Psych: Normal mood, Normal affect Results - Vitals Vitals: Vital Signs - 24 hr 10/05/19 11:48 Temperature 36.2 C L Heart Rate 87 Respiratory 18 Rate Blood Pressure 156/76 H O2 Saturation 98 Oxygen O2 Source Room air PD MEDICAL DECISION MAKING - ED course Complexity details: reviewed results, re-evaluated patient, considered differential, d/w patient ED course: 6o-year-old male with shingles we will place him on some valacyclovir and provide some pain relief. Departure - Departure Disposition: Home, Self Care Condition: Stable Instructions: ED Shingles Follow-Up: Parish Troncoso MD [Primary Care Provider] - Prescriptions: Hydrocodone/Acetaminophen [Hydrocodon-Acetaminophen 5-325] 1 - 2 each PO Q6H PRN #14 tablet PRN Reason: pain Valacyclovir HCl [Valacyclovir] 1,000 mg PO TID #21 tablet
== END 2019-10-05 12:58 | disposition home or self-care (01) ==
LOC: ED 11:44
DX: B02.9 Zoster without complications (principal); I10 Essential (primary) hypertension; E11.9 Type 2 diabetes mellitus without complications; Z79.4 Long term (current) use of insulin; Z79.82 Long term (current) use of aspirin; G47.33 Obstructive sleep apnea (adult) (pediatric)
CPT/HCPCS: 99282; 99284

== ENCOUNTER 2019-12-01 08:00 | Outpatient (CLI) | payer MEDICARE, OTHER ==
[2019-12-01 18:52] LABS: CALCIUM 9.6 mg/dL (8.5-10.3); CREATININE 1.1 mg/dL (0.6-1.2)
== END 2019-12-01 23:59 | disposition home or self-care (01) ==
LOC: LAB.WCP 08:00
PROVIDERS: ATTEND Family Medicine
DX: N18.9 Chronic kidney disease, unspecified (principal)
CPT/HCPCS: 36415; 80048

== ENCOUNTER 2019-12-28 08:29 | Outpatient (CLI) | payer MEDICARE, OTHER ==
[2019-12-28 12:11] LABS: BASOPHILS # (AUTO) 0.1 10^3/uL (0.0-0.1); BASOPHILS % (AUTO) 1.2 %; EOSINOPHILS # (AUTO) 0.3 10^3/uL (0.0-0.7); EOSINOPHILS % (AUTO) 3.9 %; HGB - HEMOGLOBIN 14.9 g/dL (14.0-18.0); LYMPHOCYTES # (AUTO) 2.6 10^3/uL (1.5-3.5); LYMPHOCYTES % (AUTO) 33.1 %; MEAN CORPUSCULAR HEMOGLOBIN 27.5 pg (27.0-31.0); MEAN CORPUSCULAR HGB CONC 31.3 g/dL (32.0-36.0); MEAN CORPUSCULAR VOLUME 87.8 fL (80.0-94.0); MEAN PLATELET VOLUME 10.5 fL (7.4-11.4); MONOCYTES # (AUTO) 0.6 10^3/uL (0.0-1.0); MONOCYTES % (AUTO) 7.6 %; NEUTROPHILS # (AUTO) 4.2 10^3/uL (1.5-6.6); NEUTROPHILS % (AUTO) 53.4 %; PLT - PLATELET COUNT 200 10^3/uL (130-450); RED BLOOD COUNT 5.42 10^6/uL (4.70-6.10); RED CELL DISTRIBUTION WIDTH 14.3 % (12.0-15.0); WHITE BLOOD COUNT 7.8 x10^3/uL (4.8-10.8)
[2019-12-28 12:40] LABS: ALBUMIN 4.5 g/dL (3.2-5.5); ALBUMIN/GLOBULIN RATIO 1.4 (1.0-2.2); ALKALINE PHOSPHATASE 58 IU/L (42-121); ALT ALANINE AMINOTRANSFERASE 42 IU/L (10-60); AST ASPARTATE AMINOTRANSFERASE 28 IU/L (10-42); BILIRUBIN,TOTAL 0.6 mg/dL (0.2-1.0); BUN - BLOOD UREA NITROGEN 13 mg/dL (6-20); CALCIUM 9.5 mg/dL (8.5-10.3); CARBON DIOXIDE - CO2 27 mmol/L (21-32); CHLORIDE 100 mmol/L (101-111); CHOL/HDL RATIO 4.3 (<5.0); CHOLESTEROL 186 mg/dL; GLUCOSE 108 mg/dL (70-100); HDL CHOLESTEROL 43 mg/dL; LDL CHOLESTEROL,CALCULATED 98 mg/dL; LDL/HDL RATIO 2.3 (<3.6); SODIUM 136 mmol/L (135-145); TOTAL PROTEIN 7.7 g/dL (6.7-8.2); VLDL CHOLESTEROL 45 mg/dL
[2019-12-28 12:43] LABS: HB2 TOTAL 15.9 g/dL; HEMOGLOBIN A1C 0.97 g/dL; HEMOGLOBIN A1C % 7.7 % (4.6-6.2)
== END 2019-12-28 23:59 | disposition home or self-care (01) ==
LOC: LAB.WCP 08:29
PROVIDERS: ATTEND Family Medicine
DX: I10 Essential (primary) hypertension (principal); E11.9 Type 2 diabetes mellitus without complications
CPT/HCPCS: 36415; 80053; 80061; 83036; 83721; 84443; 85025

== ENCOUNTER 2020-07-17 08:00 | Outpatient (CLI) | payer MEDICARE, OTHER ==
[2020-07-17 11:56] LABS: ALBUMIN 4.4 g/dL (3.2-5.5); ALBUMIN/GLOBULIN RATIO 1.5 (1.0-2.2); ALKALINE PHOSPHATASE 55 IU/L (42-121); ALT ALANINE AMINOTRANSFERASE 35 IU/L (10-60); AST ASPARTATE AMINOTRANSFERASE 25 IU/L (10-42); BILIRUBIN,TOTAL 0.9 mg/dL (0.2-1.0); BUN - BLOOD UREA NITROGEN 15 mg/dL (6-20); CALCIUM 9.8 mg/dL (8.5-10.3); CARBON DIOXIDE - CO2 28 mmol/L (21-32); CHLORIDE 100 mmol/L (101-111); CHOL/HDL RATIO 4.1 (<5.0); CHOLESTEROL 178 mg/dL; GFR - MDRD 74 (>89); GLUCOSE 166 mg/dL (70-100); HDL CHOLESTEROL 43 mg/dL; LDL CHOLESTEROL,CALCULATED 99 mg/dL; LDL/HDL RATIO 2.3 (<3.6); POTASSIUM 4.6 mmol/L (3.5-5.0); SODIUM 137 mmol/L (135-145); TOTAL PROTEIN 7.3 g/dL (6.7-8.2); TRIGLYCERIDES 179 mg/dL; VLDL CHOLESTEROL 36 mg/dL
[2020-07-17 12:02] LABS: BASOPHILS # (AUTO) 0.1 10^3/uL (0.0-0.1); BASOPHILS % (AUTO) 1.1 %; EOSINOPHILS # (AUTO) 0.2 10^3/uL (0.0-0.7); EOSINOPHILS % (AUTO) 3.1 %; HCT - HEMATOCRIT 45.1 % (42.0-52.0); HGB - HEMOGLOBIN 14.2 g/dL (14.0-18.0); LYMPHOCYTES # (AUTO) 2.2 10^3/uL (1.5-3.5); LYMPHOCYTES % (AUTO) 30.2 %; MEAN CORPUSCULAR HEMOGLOBIN 28.2 pg (27.0-31.0); MEAN CORPUSCULAR HGB CONC 31.5 g/dL (32.0-36.0); MEAN CORPUSCULAR VOLUME 89.5 fL (80.0-94.0); MEAN PLATELET VOLUME 10.4 fL (7.4-11.4); MONOCYTES # (AUTO) 0.5 10^3/uL (0.0-1.0); MONOCYTES % (AUTO) 7.2 %; NEUTROPHILS # (AUTO) 4.3 10^3/uL (1.5-6.6); PLT - PLATELET COUNT 190 10^3/uL (130-450); RED BLOOD COUNT 5.04 10^6/uL (4.70-6.10); RED CELL DISTRIBUTION WIDTH 13.4 % (12.0-15.0); THYROID STIMULATING HORMONE 2.65 uIU/mL (0.34-5.60); WHITE BLOOD COUNT 7.4 x10^3/uL (4.8-10.8)
[2020-07-17 12:07] LABS: ESTIMATED AVERAGE GLUCOSE 180 mg/dL (70-100); HEMOGLOBIN A1c% 7.9 % (4.27-6.07)
[2020-07-17 12:21] LABS: CREATININE,URINE 165.2 mg/dL; MICROALBUM/CREATININE RATIO,UR 6.7 ug/mg (<30.0); MICROALBUMIN,URINE 1.1 mg/dL (0-300.0)
== END 2020-07-17 23:59 | disposition home or self-care (01) ==
LOC: LAB.WCP 08:00
PROVIDERS: ATTEND Family Medicine
DX: E11.9 Type 2 diabetes mellitus without complications (principal)
CPT/HCPCS: 36415; 80053; 80061; 82043; 82570; 83036; 83721; 84443; 85025

== ENCOUNTER 2020-10-05 08:00 | Outpatient (CLI) | payer MEDICARE, OTHER ==
[2020-10-05 12:18] LABS: ALBUMIN 4.4 g/dL (3.2-5.5); ALBUMIN/GLOBULIN RATIO 1.3 (1.0-2.2); ALKALINE PHOSPHATASE 59 IU/L (42-121); ALT ALANINE AMINOTRANSFERASE 42 IU/L (10-60); AST ASPARTATE AMINOTRANSFERASE 28 IU/L (10-42); BILIRUBIN,TOTAL 0.6 mg/dL (0.2-1.0); BUN - BLOOD UREA NITROGEN 17 mg/dL (6-20); CALCIUM 9.5 mg/dL (8.5-10.3); CARBON DIOXIDE - CO2 27 mmol/L (21-32); CHLORIDE 98 mmol/L (101-111); CHOL/HDL RATIO 4.6 (<5.0); CHOLESTEROL 189 mg/dL; ESTIMATED AVERAGE GLUCOSE 229 mg/dL (70-100); GFR - MDRD 74 (>89); GLUCOSE 106 mg/dL (70-100); HDL CHOLESTEROL 41 mg/dL; HEMOGLOBIN A1c% 9.6 % (4.27-6.07); LDL CHOLESTEROL,CALCULATED 103 mg/dL; LDL/HDL RATIO 2.5 (<3.6); POTASSIUM 3.6 mmol/L (3.5-5.0); SODIUM 135 mmol/L (135-145); TOTAL PROTEIN 7.7 g/dL (6.7-8.2); TRIGLYCERIDES 224 mg/dL; VLDL CHOLESTEROL 45 mg/dL
[2020-10-05 12:22] LABS: BASOPHILS # (AUTO) 0.1 10^3/uL (0.0-0.1); BASOPHILS % (AUTO) 1.2 %; EOSINOPHILS # (AUTO) 0.3 10^3/uL (0.0-0.7); EOSINOPHILS % (AUTO) 3.8 %; HCT - HEMATOCRIT 46.3 % (42.0-52.0); HGB - HEMOGLOBIN 14.6 g/dL (14.0-18.0); LYMPHOCYTES # (AUTO) 2.8 10^3/uL (1.5-3.5); LYMPHOCYTES % (AUTO) 37.2 %; MEAN CORPUSCULAR HEMOGLOBIN 27.9 pg (27.0-31.0); MEAN CORPUSCULAR HGB CONC 31.5 g/dL (32.0-36.0); MEAN CORPUSCULAR VOLUME 88.5 fL (80.0-94.0); MEAN PLATELET VOLUME 10.2 fL (7.4-11.4); MONOCYTES # (AUTO) 0.5 10^3/uL (0.0-1.0); MONOCYTES % (AUTO) 7.1 %; NEUTROPHILS # (AUTO) 3.8 10^3/uL (1.5-6.6); PLT - PLATELET COUNT 184 10^3/uL (130-450); RED BLOOD COUNT 5.23 10^6/uL (4.70-6.10); RED CELL DISTRIBUTION WIDTH 13.6 % (12.0-15.0); WHITE BLOOD COUNT 7.6 x10^3/uL (4.8-10.8)
[2020-10-05 12:27] LABS: THYROID STIMULATING HORMONE 3.91 uIU/mL (0.34-5.60)
== END 2020-10-05 23:59 | disposition home or self-care (01) ==
LOC: LAB.WCP 08:00
PROVIDERS: ATTEND Family Medicine
DX: E11.9 Type 2 diabetes mellitus without complications (principal)
CPT/HCPCS: 36415; 80053; 80061; 83036; 83721; 84443; 85025

== ENCOUNTER 2021-01-16 08:00 | Outpatient (CLI) | payer MEDICARE, OTHER ==
[2021-01-16 12:14] LABS: BASOPHILS # (AUTO) 0.1 10^3/uL (0.0-0.1); BASOPHILS % (AUTO) 1.1 %; EOSINOPHILS # (AUTO) 0.4 10^3/uL (0.0-0.7); EOSINOPHILS % (AUTO) 5.3 %; HCT - HEMATOCRIT 46.6 % (42.0-52.0); HGB - HEMOGLOBIN 14.7 g/dL (14.0-18.0); LYMPHOCYTES # (AUTO) 2.6 10^3/uL (1.5-3.5); LYMPHOCYTES % (AUTO) 36.1 %; MEAN CORPUSCULAR HEMOGLOBIN 28.4 pg (27.0-31.0); MEAN CORPUSCULAR HGB CONC 31.5 g/dL (32.0-36.0); MEAN PLATELET VOLUME 10.2 fL (7.4-11.4); MONOCYTES # (AUTO) 0.5 10^3/uL (0.0-1.0); MONOCYTES % (AUTO) 6.2 %; NEUTROPHILS # (AUTO) 3.7 10^3/uL (1.5-6.6); NEUTROPHILS % (AUTO) 50.6 %; PLT - PLATELET COUNT 204 10^3/uL (130-450); RED BLOOD COUNT 5.18 10^6/uL (4.70-6.10); RED CELL DISTRIBUTION WIDTH 13.6 % (12.0-15.0); WHITE BLOOD COUNT 7.2 x10^3/uL (4.8-10.8)
[2021-01-16 12:42] LABS: ALBUMIN 4.4 g/dL (3.2-5.5); ALBUMIN/GLOBULIN RATIO 1.3 (1.0-2.2); ALKALINE PHOSPHATASE 56 IU/L (42-121); ALT ALANINE AMINOTRANSFERASE 30 IU/L (10-60); AST ASPARTATE AMINOTRANSFERASE 22 IU/L (10-42); BILIRUBIN,TOTAL 0.9 mg/dL (0.2-1.0); BUN - BLOOD UREA NITROGEN 15 mg/dL (6-20); CALCIUM 9.7 mg/dL (8.5-10.3); CARBON DIOXIDE - CO2 26 mmol/L (21-32); CHLORIDE 103 mmol/L (101-111); CHOL/HDL RATIO 3.8 (<5.0); CHOLESTEROL 144 mg/dL; CREATININE 1.1 mg/dL (0.6-1.2); GFR - MDRD 66 (>89); GLUCOSE 105 mg/dL (70-100); HDL CHOLESTEROL 38 mg/dL; LDL CHOLESTEROL,CALCULATED 69 mg/dL; LDL/HDL RATIO 1.8 (<3.6); SODIUM 142 mmol/L (135-145); TOTAL PROTEIN 7.7 g/dL (6.7-8.2); TRIGLYCERIDES 185 mg/dL; VLDL CHOLESTEROL 37 mg/dL
[2021-01-16 12:46] LABS: ESTIMATED AVERAGE GLUCOSE 166 mg/dL (70-100); HEMOGLOBIN A1c% 7.4 % (4.27-6.07)
== END 2021-01-16 23:59 | disposition home or self-care (01) ==
LOC: LAB.WCP 08:00
PROVIDERS: ATTEND Family Medicine
DX: E11.8 Type 2 diabetes mellitus with unspecified complications (principal)
CPT/HCPCS: 36415; 80053; 80061; 83036; 83721; 85025

== ENCOUNTER 2021-09-07 11:33 | Outpatient (CLI) | payer MEDICARE, OTHER ==
[2021-09-07 19:06] LABS: BASOPHILS # (AUTO) 0.1 10^3/uL (0.0-0.1); BASOPHILS % (AUTO) 0.9 %; EOSINOPHILS # (AUTO) 0.4 10^3/uL (0.0-0.7); EOSINOPHILS % (AUTO) 4.3 %; HCT - HEMATOCRIT 46.8 % (42.0-52.0); HGB - HEMOGLOBIN 14.9 g/dL (14.0-18.0); LYMPHOCYTES # (AUTO) 2.6 10^3/uL (1.5-3.5); LYMPHOCYTES % (AUTO) 26.2 %; MEAN CORPUSCULAR HEMOGLOBIN 27.6 pg (27.0-31.0); MEAN CORPUSCULAR HGB CONC 31.8 g/dL (32.0-36.0); MEAN CORPUSCULAR VOLUME 86.7 fL (80.0-94.0); MEAN PLATELET VOLUME 10.4 fL (7.4-11.4); MONOCYTES # (AUTO) 0.9 10^3/uL (0.0-1.0); MONOCYTES % (AUTO) 9.2 %; NEUTROPHILS # (AUTO) 5.7 10^3/uL (1.5-6.6); NEUTROPHILS % (AUTO) 58.8 %; PLT - PLATELET COUNT 216 10^3/uL (130-450); RED CELL DISTRIBUTION WIDTH 13.5 % (12.0-15.0); WHITE BLOOD COUNT 9.8 x10^3/uL (4.8-10.8)
[2021-09-07 19:26] LABS: ALBUMIN 4.3 g/dL (3.2-5.5); ALBUMIN/GLOBULIN RATIO 1.3 (1.0-2.2); ALKALINE PHOSPHATASE 69 IU/L (42-121); ALT ALANINE AMINOTRANSFERASE 35 IU/L (10-60); AST ASPARTATE AMINOTRANSFERASE 25 IU/L (10-42); BILIRUBIN,TOTAL 0.6 mg/dL (0.2-1.0); BUN - BLOOD UREA NITROGEN 16 mg/dL (6-20); CALCIUM 9.3 mg/dL (8.5-10.3); CARBON DIOXIDE - CO2 25 mmol/L (21-32); CHLORIDE 97 mmol/L (101-111); CHOL/HDL RATIO 2.7 (<5.0); CHOLESTEROL 112 mg/dL; GFR - MDRD 73 (>89); GLUCOSE 114 mg/dL (70-100); HDL CHOLESTEROL 42 mg/dL; LDL CHOLESTEROL,CALCULATED 41 mg/dL; POTASSIUM 4.2 mmol/L (3.5-5.0); SODIUM 134 mmol/L (135-145); TOTAL PROTEIN 7.6 g/dL (6.7-8.2); TRIGLYCERIDES 144 mg/dL; VLDL CHOLESTEROL 29 mg/dL
[2021-09-07 20:52] LABS: ESTIMATED AVERAGE GLUCOSE 189 mg/dL (70-100); HEMOGLOBIN A1c% 8.2 % (4.27-6.07)
== END 2021-09-07 11:34 | disposition home or self-care (01) ==
LOC: LAB.N 11:33
PROVIDERS: ATTEND Family Medicine
DX: E11.9 Type 2 diabetes mellitus without complications (principal)
CPT/HCPCS: 36415; 80053; 80061; 83036; 83721; 85025

== ENCOUNTER 2022-08-27 12:56 | Outpatient (CLI) | payer MEDICARE, OTHER ==
[2022-08-27 14:01] VITALS: BP 112/68
--- NOTE | 2022-08-27 14:01 | SLEEP CARE CONSULTATION ---
Information from patient questionnaire entered by Audelia Jorgensen. I have reviewed and concur with the information entered by Audelia Jorgensen. This document represents the service I personally performed and the decisions made by me, Liz Reyes ARNP. History of Present Illness Service Date and Time: 08/27/2022 1256 Reason for Visit: New patient, sleep apnea on CPAP therapy, Re-establish care Chief Complaint: reports: Other (UPDATE SUPPLIES) Date of Onset: 20YRS Usual bedtime: 11PM Time it takes to fall asleep: 5MIN Snores at night: Yes Observed to quit breathing while asleep: Yes Sleeps alone due to snoring: No Number of times waking at night: 0 Reasons for waking at night: reports: Bathroom Toss, Turn, or Twitch while sleeping: Yes Recalls having dreams: Yes Usually gets out of bed at: 6AM Feels refreshed in the morning: No Morning headache: No Sleepy or fatigued during the day: Yes Ever fallen asleep while driving: No Takes day naps: Yes Dreams during day naps: Yes Prior sleep studies: Yes Year and Where: 2010 [facility] Type of Sleep Study: Polysomnography Additional HPI information: MAXIME WERNER was previously diagnosed to have very severe, AHI 106.3, obstructive sleep apnea-hypopnea syndrome and comes in today to re-establish care for BIPAP therapy. We have a copy of sleep study dated 11/10/2010 that he did here at [facility]. His last titration study dated 08/10/2015 showed optimal apnea control with BIPAP. - Parasomnia Symptoms Ever been unable to move upon waking from sleep: No Walks in sleep: No Talks in sleep: Yes Ever acted out dreams in sleep: Yes Ever felt weak in the knees when startled or emotional: No Bothered by creepy, crawly, restless sensations in legs: Yes Problems with memory or concentration: Yes CPAP Compliance Data - Data Reviewed with Patient Average duration of nightly device use: 8 hours 36 minutes Compliance rate %: 100 (90/ days used) Current pressure setting (cmH2O): 20/10 with 4 cmH2O pressure support Average residual AHI: 0.4 Central apnea: 0 Obstructive apnea: 0.1 Hypopnea: 0.2 Average large leak: 10.3 lpm Compliance data discussion: Patient has an AirCurve 10 VAuto Bipap machine. He is getting his supplies from [facility] in [place]. He is using ResMed F30 mask. He states he sleeps 5-6 hours a night and then take 1-2 naps during day with Bipap due to daytime fatigue issues. Subjective Patient concerns: reports: air blowing in eyes (just needs adjustment), dry mo uth, nose, throat (always had dry mouth due to his diabetes). denies: aerophagia, mask discomfort, mask leak noise, condensation in mask/hose, nasal congestion, epistaxis Observed to snore while using device: No Current pressure setting perceived as: comfortable On therapy, patient: reports: sleeping better, awakening more refreshed, being more awake and alert during the day, more rested overall. denies: drowsiness while driving Initial [place] Sleepiness Scale score: 12 (07/23/22) Past Medical History Past Medical History: reports: Hypertension, Diabetes, Arthritis, Coronary Heart Disease, Anxiety, Impotence, Depression, Other (PACE MAKER, COGNITIVE MEMORY LOSS, NEUROPATHY FEET; Prostate cancer) Social History The patient's occupation is a RE. Patient is Single and lives in [place]. Have you smoked in the past 12 months: No Years of smokin Quit date: 1990 Alcohol use: No Caffeine use: Yes Caffeine amount and frequency: 2CUPS MORNING Family History Family history of sleep disordered breathing: No Allergies and Home Medications Known drug allergies: Yes (as listed) Drug allergies reviewed: Yes Home medication list reviewed: Yes (as updated in EMR) Allergy and home medication list: Allergies niacin Allergy (Verified 08/26/22 09:14) Rash testosterone Allergy (Verified 08/26/22 09:14) low RBC Review of Systems Cardiovascular: reports: high blood pressure, irregular heart rate or pulse Gastrointestinal: denies: heartburn Urinary: reports: frequency, urgency, impotence Neurological: denies: headaches Psychiatric: reports: anxiety, depression Ear/Nose/Throat: reports: dry mouth/throat, wisdom teeth removed Endocrine: reports: sluggishness, too hot or cold, excessive thirst, increased appetite, increased urination Physical Exam Vital signs obtained and entered by: AUDELIA Mai MA Blood Pressure: 112/68 (LEFT ARM) Cuff size: long Heart Rate: 73 O2 Saturation: 96 Height: 6 ft 2 in Weight: 290 lb 6.4 oz Body Mass Index: 37.3 BMI Classification: Obese Neck circumference: 19.5 Heart: regular rate and rhythm Lungs: clear bilaterally Impression and Plan 1. Obstructive Sleep Apnea-Hypopnea Syndrome, very severe, with good treatment compliance and good apnea control. On BIPAP therapy, the patient has better sleep quality and is more rested overall. Patient has significant improvement of their sleep apnea and is satisfied with current CPAP therapy. Patient's apnea severity and rationale for treatment to reduce apnea, improve sleep quality and reduce cardiovascular and cerebrovascular events was reviewed. I also reviewed the benefit of consistent device use of BIPAP for hypertension, cardiac disease, diabetes, depression and anxiety. 2. Obesity, unspecified. Currently patients BMI is 37.3. Obesity increases the risk of apnea, BIPAP pressure requirements and overall health risks especially cardiovascular and diabetes. Thus patient is advised to lose weight. * Continue BIPAP pressure at 20/10 cmH2O with 4 cmH2O pressure support * Update supplies * Notify me if snoring with mask or feeling that the pressure is too much or too little * Attempt to lose weight * Call this office if any problems using BIPAP * Return for follow up in 1 year, or sooner if concerns arise Counseling Topics: Spare mask, Weight loss health impact Visit Type: In Office Time Spent with Patient (minutes): 30 Provider Statement: I spent 100% of the Face to Face Visit with the patient with greater than 50% spent counseling the patient and coordination of care.
== END 2022-08-27 12:57 | disposition home or self-care (01) ==
LOC: SC 12:56
PROVIDERS: ATTEND Nurse Practitioner Family
DX: G47.33 Obstructive sleep apnea (adult) (pediatric) (principal); E66.9 Obesity, unspecified; Z68.37 Body mass index [BMI] 37.0-37.9, adult
CPT/HCPCS: 99203; G0463; 99212

== ENCOUNTER 2023-09-24 09:29 | Outpatient (CLI) | payer MEDICARE, OTHER ==
--- NOTE | 2023-09-24 10:03 | Sleep Patient Instructions ---
Sleep Center Visit Summary - Patient Visit Information Reason for Visit: Annual follow-up - Patient Instructions Additional Instructions: You will continue with BiPAP therapy with pressure set at 20/10 cmH2O. A supply prescription will be updated with your DME. We encourage you to continue to try to lose weight. Please follow up with the sleep care office in 1 year. - Clinic Information Contact: [facility] [address] [place] [address] [email or web address] T: [phone]
--- NOTE | 2023-09-24 10:09 | SLEEP CARE CONSULTATION ---
Information from patient questionnaire entered by Audelia Jorgensen. I have reviewed and concur with the information entered by Audelia Jorgensen. This document represents the service I personally performed and the decisions made by me, Liz Reyes ARNP. History of Present Illness Service Date and Time: 09/24/2023 09 Previous diagnosis: Extremely Severe, Obstructive Sleep Apnea-Hypopnea Syndrome AHI: 106.3 Reason for follow up: annual (LAST SEEN 08/2022) Equipment type: CPAP (RESMED AIRSENSE 10 S/U 05/29/2021) Equipment obtained from: [facility] (getting supplies) Mask style: Full face Mask brand: Resmed (F30) Backup mask available: Yes Last cushion change: few days ago Prior sleep studies: Yes Year and Where: 2010 [facility] Type of Sleep Study: Polysomnography HPI additional information: MAXIME WERNER was diagnosed to have extremely severe, AHI 106.3, obstructive sleep apnea-hypopnea syndrome and returned today for BIPAP therapy annual follow-up. Sleep Study - Results Type of Sleep Study: Polysomnography Prior sleep studies: Yes Year and Where: 2010 [facility] Compliance Data - Data Reviewed with Patient Average duration of nightly device use: 8 HRS 58 MINS Compliance rate %: 99 (09/22/2022-) Current pressure setting (cmH2O): 20/10 Average residual AHI: 0.8 Central apnea: 0 Obstructive apnea: 0.2 Average large leak: 5.6 L/min Subjective Patient concerns: reports: dry mouth, nose, throat (dry mouth, meds possibly causing). denies: aerophagia, mask discomfort, air blowing in eyes, mask leak noise, condensation in mask/hose, nasal congestion, epistaxis Observed to snore while using device: No Current pressure setting perceived as: comfortable On therapy, patient: reports: sleeping better, awakening more refreshed, more rested overall, other (on meds for cancer, Lupron). denies: drowsiness while driving Initial Protection Sleepiness Scale score: 12 (07/23/22) Current Protection Sleepiness Scale score: 15 (09/24/23) Allergies and Home Medications Known drug allergies: Yes (as listed) Drug allergies reviewed: Yes Home medication list reviewed: Yes (no changes) Allergy and home medication list: Allergies niacin Allergy (Verified 09/22/23 09:26) Rash testosterone Allergy (Verified 09/22/23 09:26) low RBC Review of Systems Review of systems same as previous: No (PROSTATE CANCER) Physical Exam Vital signs obtained and entered by: GARRISON Mai MA Blood Pressure: 136/75 (RIGHT ARM) Cuff size: long Heart Rate: 73 O2 Saturation: 98 Height: 6 ft 2 in Weight: 286 lb Weight change since last visit: 4 lb gain Body Mass Index: 36.7 BMI Classification: Obese Impression and Plan 1. Obstructive Sleep Apnea-Hypopnea Syndrome, extremely severe, with good treatment compliance and good apnea control. On BIPAP therapy, the patient has better sleep quality and is more rested overall. Patient has significant improvement of their sleep apnea and is satisfied with current CPAP therapy. He gets a very dry mouth and has had his dentist tell him he needs more moisture. He said he decided to turn the humidifier back on because he has not been using it. He does not like warm air on his face. Oral dryness can be reduced by adjusting humidity setting higher or heated hose lower or by adjusting both settings. Patient's apnea severity and rationale for treatment to reduce apnea, improve sleep quality and reduce cardiovascular and cerebrovascular events was reviewed. I also reviewed the benefit of consistent device use of BIPAP for hypertension, cardiac disease, diabetes, depression/anxiety. 2. Obesity, unspecified. Currently patients BMI is 36.7. Obesity increases the risk of apnea, BIPAP pressure requirements and overall health risks especially cardiovascular and diabetes. Thus patient is advised to lose weight. * Continue BiPAP pressure at 20/10 cmH2O with 4 cmH2O pressure support * Update supply prescription * Notify me if snoring with mask or feeling that the pressure is too much or too little * Attempt to lose weight * Call this office if any problems using BiPAP * Return for follow up in 12 months, or sooner if concerns arise Counseling Topics: Spare mask, Weight loss health impact Prescriptions: Device supplies Follow up with Sleep Care in: 1 year Visit Type: In Office Time Spent with Patient (minutes): 20 Provider Statement: I spent 100% of the Face to Face Visit with the patient with greater than 50% spent counseling the patient and coordination of care.
[2023-09-24 10:17] VITALS: BP 136/75; O2SAT 98
== END 2023-09-24 09:30 | disposition home or self-care (01) ==
LOC: SC 09:29
PROVIDERS: ATTEND Nurse Practitioner Family
DX: G47.33 Obstructive sleep apnea (adult) (pediatric) (principal); E66.9 Obesity, unspecified; Z68.36 Body mass index [BMI] 36.0-36.9, adult
CPT/HCPCS: 99213; G0463; 99212